=== PATIENT | male | born 1945 | race Caucasian/White ===

== ENCOUNTER 2017-07-01 05:50 | Inpatient (IN) | payer OTHER ==
[~2017-07-01] VITALS: Ht 165.1 cm; Wt 111.1 kg
[2017-07-04] MEDS ORDERED: OXYC1TAB9 PO (08:43)
[2017-07-04] MEDS ORDERED: XARELTO10 MG PO (08:43)
[2017-07-04] MEDS ORDERED: INTEGRA PLUS C1 EACH PO (08:43)
== END 2017-07-04 15:03 | DRG 470 ==
LOC: O/R 05:50 → SURH 07:00
PROVIDERS: Orthopaedic Surgery Sports Medicine
PROC: 0SRC0J9 Replacement of Right Knee Joint with Synthetic Substitute, Cemented, Open Approach (ICD-10-PCS; principal; 2017-07-01 07:00)
DX: M17.11 Unilateral primary osteoarthritis, right knee (principal); E78.4 Other hyperlipidemia; I25.10 Atherosclerotic heart disease of native coronary artery without angina pectoris; I11.9 Hypertensive heart disease without heart failure; E11.9 Type 2 diabetes mellitus without complications

== ENCOUNTER 2021-10-25 08:45 | Inpatient (IN) | payer OTHER ==
[~2021-10-25] VITALS: Ht 165.1 cm; Wt 98.9 kg
[~2021-10-25 08:45] MED LIST: INTEGRA PLUS C1 EACH PO; OXYC1TAB9 PO; XARELTO10 MG PO
[2021-10-25] MEDS ORDERED: GLUMETZA500 MG PO (09:38)
[2021-10-25] MEDS ORDERED: NORVASC2.5 M1 PO (09:39)
[2021-10-25] MEDS ORDERED: CRESTOR20 MG PO (09:39)
[2021-10-25] MEDS ORDERED: TOPROL XL100 M1 PO (09:39)
[2021-10-25] MEDS ORDERED: ADULT LOW DOSE81 M1 PO (09:40)
[2021-10-25] MEDS ORDERED: PROTON PO (09:40)
[2021-10-31] MEDS ORDERED: LOSARTAN POTAS100 MG (08:07)
[2021-10-31] MEDS ORDERED: FUROSEMIDE20 MG (08:07)
[2021-10-31] MEDS ORDERED: PROTONIX20 MG (08:08)
[2021-11-01] MEDS ORDERED: XARELTO10 MG PO (06:18)
[2021-11-01] MEDS ORDERED: OXYC1TAB9 PO (06:18)
[2021-11-01] MEDS ORDERED: BACTRIM DS TAB1 EACH PO (06:18)
[2021-11-01] MEDS ORDERED: INTEGRA PLUS C1 EACH PO (06:18)
== END 2021-11-01 22:01 | disposition designated cancer center or children's hospital (05) | DRG 470 ==
LOC: O/R 10-30 06:38 → SURH 10-30 06:38
PROVIDERS: ADMIT Orthopaedic Surgery Sports Medicine; ATTEND Orthopaedic Surgery Sports Medicine
PROC: 0SRD0J9 Replacement of Left Knee Joint with Synthetic Substitute, Cemented, Open Approach (ICD-10-PCS; principal; 2021-10-30 13:45)
DX: M17.12 Unilateral primary osteoarthritis, left knee (principal); I10 Essential (primary) hypertension; Z20.822 Contact with and (suspected) exposure to COVID-19; Z95.1 Presence of aortocoronary bypass graft